=== PATIENT | male | born 1985 | race Caucasian/White ===

== ENCOUNTER 2019-08-31 17:13 | Emergency (ER) | payer BC ==
[2019-08-31 17:27] VITALS: BP 139/77; PULSE 78; RESP 20; TEMP 98
[2019-08-31] MEDS ORDERED: LIDOCAINE 1% INJ 10MG/ML (20 ML MDV) SQ STA (17:31)
[2019-08-31] MEDS ORDERED: CEPHALEXIN 500 MG CAP PO STA (17:32)
[2019-08-31] MEDS ORDERED: CEPHALEXIN 500MG STARTER PACK 4 CAP BTL PO STA (17:32)
[2019-08-31] MEDS ORDERED: DIPH,PERTUS(ACELL)TETVAC-LF 0.5 ML VIAL IM ONE (17:32)
--- NOTE | 2019-08-31 17:58 | XR ---
EXAMINATION TYPE: XR wrist complete LT DATE OF EXAM: 08/31/2019 COMPARISON: None HISTORY: 34-year-old male anterior left wrist laceration, pain TECHNIQUE: 4 views FINDINGS: The radiocarpal and distal radioulnar joint as well as the midcarpal compartment appear intact. No ac alesha fracture, subluxation, dislocation. There is some soft tissue swelling along the anterior aspect of the wrist. IMPRESSION: Some anterior soft tissue tissue swelling at the wrist. No underlying acute osseous abnormality seen.
--- NOTE | 2019-08-31 18:50 | ED ---
General Adult HPI - General Chief complaint: Wound/Laceration Stated complaint: Wrist laceration Time Seen by Provider: 08/31/19 17:28 Source: patient, RN notes reviewed, old records reviewed Mode of arrival: ambulatory Limitations: no limitations - History of Present Illness Initial comments: 34-year-old male patient from the for chief complaint of laceration to left wrist. Patient reports he was carrying a piece of slate 20 broke in half causing the laceration. Patient does have approximately a 4 cm laceration of the distal left radius. Does not know date of last tetanus. Denies any other complaints. Systemic: Pt denies fatigue, fever/chills, rash. Pt denies weakness, night sweats, weight loss. Neuro: Pt denies headache, visual disturbances, syncope or pre-syncope. HEENT: Pt denies ocular discharge or irritation, otalgia, rhinorrhea, pharyngitis or notable lymphadenopathy. Cardiopulmonary: Pt denies chest pain, SOB, heart palpitations, dyspnea on exertion. Abdominal/GI: Pt denies abdominal pain, n/v/d. : Pt denies dysuria, burning w/ urination, frequency/urgency. Denies new onset urinary or bowel incontinence. MSK: Pt denies myalgia, loss of strength or function in extremities. Neuro: Pt denies new onset weakness, paresthesias. - Related Data Previous Rx's Medication Instructions Recorded Cephalexin [Keflex] 500 mg PO Q6HR 3 Days #12 cap 08/31/19 Allergies Allergy/AdvReac Type Severity Reaction Status Date / Time No Known Allergies Allergy Verified 08/31/19 17:27 Review of Systems ROS Statement: Those systems with pertinent positive or pertinent negative responses have been documented in the HPI. ROS Other: All systems not noted in ROS Statement are negative. Past Medical History Past Medical History: No Reported History History of Any Multi-Drug Resistant Organisms: None Reported Past Surgical History: No Surgical Hx Reported Past Psychological History: Depression Smoking Status: Never smoker Past Alcohol Use History: Occasional Past Drug Use History: Marijuana General Exam - General Exam Comments Initial Comments: Constitutional: NAD, AOX3, Pt has pleasant affect. HEENT: NC/AT, trachea midline, neck supple, no lymphadenopathy. Posterior pharynx non erythematous, without exudates. External ears appear normal, without discharge. Mucous membranes moist. Eyes PERRLA, EOM intact. There is no scleral icterus. No pallor noted. Cardiopulmonary: RRR, no murmurs, rubs or gallops, no JVD noted. Lungs CTAB in anterior and posterior sullivan. No peripheral edema. Abdominal exam: Abdomen soft and non-distended. Abdomen non-tender to palpation in all 4 quadrants. Bowel sounds active in LLQ. No hepatosplenomegaly. No ecchymosis Neuro: CN II-XII grossly intact. No nuchal rigidity. No raccon eyes, no santo sign, no hemotympanum. No cervical spinal tenderness. MSK: 4 cm laceration distal left radius. There is tendon exposure likely from the brachioradialis muscle. No damage noted. No foreign body, no osseous involvement. Full active range of motion of wrist, all fingers, sensation intact. Neurovascularly is intact. Wound is vigorously irrigated 1 L normal saline and approximated with 7 simple interrupted sutures. No posterior calf tenderness bilaterally, homans sign negative bilaterally. Posterior tibialis and radial pulse +2 bilaterally. Sensation intact in upper and lower extremities. Full active ROM in upper and lower extremities, 5/5 stregnth. Limitations: no limitations Course Vital Signs 08/31/19 17:25 Temperature 98.0 F Pulse Rate 78 Respiratory 20 Rate Blood Pressure 139/77 O2 Sat by Pulse 99 Oximetry Procedures - Laceration Laceration #1 Consent Obtained: verbal consent Indication: laceration Site: other (left wrist ) Size (cm): 4 Description: linear Depth: simple, single layer Anesthetic Used: lidocaine 1% Anesthesia Technique: local infiltration Amount (mls): 4 Pre-repair: wound explored, irrigated extensively, deep structures intact Type of Sutures: nylon Size of Sutures: 5-0 Number of Sutures: 4 Patient Tolerated Procedure: well, no complications Medical Decision Making - Medical Decision Making 34-year-old male patient from the for chief complaint of laceration to left wrist. Patient reports he was carrying a piece of slate 20 broke in half causing the laceration. Patient does have approximately a 4 cm laceration of the distal left radius. Does not know date of last tetanus. Denies any other complaints. Patient vital signs are stable, afebrile. Physical exam displayed: 4 cm laceration distal left radius. There is tendon exposure likely from the brachioradialis muscle. No damage noted. No foreign body, no osseous involvement. Full active range of motion of wrist, all fingers, sensation intact. Neurovascularly is intact. Wound is vigorously irrigated 1 L normal saline and approximated with 7 simple interrupted sutures. Plain film of wrist displayed some soft anterior tissue swelling. No osseous abnormality. Patient will discharge the patient follow up with primary care provider and return precautions. Case discussed with Dr. Veras. Disposition Clinical Impression: Laceration Disposition: HOME SELF-CARE Condition: Stable Instructions (If sedation given, give patient instructions): Laceration (ED) Additional Instructions: Follow-up with primary care provider tomorrow. Please return for suture removal: Hand: 7-10 days Face: 5 days Chest/abdomen: 12-14 days Extremities: 7-10 days Scalp: 7 days Eyebrow: 5-7 days Foot/sole: 12-14 days Please monitor for signs and symptoms of infection including: redness, warmth, drainage, discharge. Please return to ED if these signs or symptoms occur, new signs or symptoms develop or if condition worsens in anyway. Prescriptions: Cephalexin [Keflex] 500 mg PO Q6HR 3 Days #12 cap Is patient prescribed a controlled substance at d/c from ED?: No Referrals: Dano Mckeon MD [Primary Care Provider] - 1-2 days
== END 2019-08-31 19:13 | disposition home or self-care (01) ==
LOC: EC 17:13
DX: S61.512A Laceration without foreign body of left wrist, initial encounter (principal); Z23 Encounter for immunization; W26.8XXA Contact with other sharp object(s), not elsewhere classified, initial encounter; Y93.89 Activity, other specified; Y92.89 Other specified places as the place of occurrence of the external cause
CPT/HCPCS: 73110; 90715; 99283; 12002; 90471; J2001

== ENCOUNTER → 2022-10-26 | Outpatient (CLI) | payer OTHER ==
--- NOTE | 2022-10-26 14:19 | XR ---
EXAMINATION TYPE: XR finger LT DATE OF EXAM: 10/26/2022 COMPARISON: NONE HISTORY: Pain TECHNIQUE: Three views are submitted. FINDINGS: The osseous structures are intact. The joint spaces are preserved and there is no acute fracture or dislocation. IMPRESSION: 1. No definite acute fracture or dislocation if symptoms persist, follow-up study in 7 to 10 days wo uld be suggested
== END | disposition home or self-care (01) ==
LOC: RADXRMAIN 13:57
PROVIDERS: ATTEND Emergency Medicine
DX: S61.231A Puncture wound without foreign body of left index finger without damage to nail, initial encounter (principal)